=== PATIENT | female | born 1970 | race Caucasian/White ===

== ENCOUNTER 2020-02-15 22:21 | Observation (INO) | payer OTHER, SELFPAY ==
[2020-02-15 22:36] VITALS: BP 198/126; PULSE 94; RESP 16; TEMP 36.2; O2SAT 97; BMI 35.4
--- NOTE | 2020-02-15 23:53 | XR_ITS ---
WS: [id number] XR chest 1V portable [id number] REASON FOR EXAM: Chest pain FINDINGS: Portable upright AP chest shows normal appearance the heart and mediastinum. The peripheral lung show scattered granulomas but no pneumonia, pleural effusion, pulmonary edema, ar e pneumothorax. The hilum and apices normal. No osseous abnormalities. XR/XR chest 1V portable [id number] IMPRESSION: Granulomatous disease.
--- NOTE | 2020-02-15 23:54 | ECG_ITS ---
Measurements Intervals [place] Rate: 82 P: 66 MA: 138 QRS: 45 QRSD: 82 T: 43 QT: 394 QTc: 461 SINUS RHYTHM No previous ECG available for comparison Electronically Signed On 02-16-2020 11:14:07 CDT by Elvin Singletary M.D. [email or web address]
--- NOTE | 2020-02-15 23:54 | CTR_ITS ---
PROCEDURE INFORMATION: Exam: CT Cervical Spine Without Contrast Exam date and time: 02/15/2020 11:55 PM Age: 49 years old Clinical indication: Neck pain; Patient HX: CO lt shoulder pain TECHNIQUE: Imaging protocol: Computed tomography images of the cervical spine without contrast. Radiation optimization: All CT scans at this facility use at least one of these dose optimization techniques: automated exposure control; mA and/or kV adjustment per patient size (includes targeted exams where dose is matched to clinical indication); or iterative reconstruction. COMPARISON: No relevant prior studies available. RADIATION DOSE METRICS: Total DLP: 831.84 mGy-cm FINDINGS: Vertebrae: No acute fracture. Normal alignment. C2-C3: No significant disc protrusion. No severe spinal canal stenosis. No significant neural foraminal narrowing. C3-C4: No significant disc protrusion. No severe spinal canal stenosis. No significant neural foraminal narrowing. C4-C5: No significant disc protrusion. No severe spinal canal stenosis. No significant neural foraminal narrowing. C5-C6: No significant disc protrusion. No severe spinal canal stenosis. No significant neural foraminal narrowing. C6-C7: No significant disc protrusion. No severe spinal canal stenosis. No significant neural foraminal narrowing. C7-T1: No significant disc protrusion. No severe spinal canal stenosis. No significant neural foraminal narrowing. Soft tissues: Unremarkable. Lungs: Lung apices are normal. CT/CT cervical spin wo con* [id number] IMPRESSION: Negative for fracture or dislocation Radiation Dose CTDIVOL = (mGy): DLP = 831.84 (mGy-cm)
--- NOTE | 2020-02-15 23:54 | CTR_ITS ---
PROCEDURE INFORMATION: Exam: CT Head Without Contrast Exam date and time: 02/15/2020 11:55 PM Age: 49 years old Clinical indication: Pain; Headache not specified TECHNIQUE: Imaging protocol: Computed tomography of the head without contrast. Radiation optimization: All CT scans at this facility use at least one of these dose optimization techniques: automated exposure control; mA and/or kV adjustment per patient size (includes targeted exams where dose is matched to clinical indication); or iterative reconstruction. COMPARISON: No relevant prior studies available. RADIATION DOSE METRICS: Total DLP: 854.65 mGy-cm FINDINGS: Brain: Normal. No hemorrhage. Unremarkable white matter. No mass effect. Ventricles: Normal. No ventriculomegaly. Bones/joints: Unremarkable. No acute fracture. Sinuses: Visualized sinuses are unremarkable. No fluid levels. Mastoid air cells: Visualized mastoid air cells are well aerated. Soft tissues: Unremarkable. CT/CT head wo con* [id number] IMPRESSION: Negative for intracranial hemorrhage or mass effect. Radiation Dose CTDIVOL = (mGy): DLP = 854.65 (mGy-cm)
[2020-02-16] VITALS (12 sets, daily range): BP systolic 128–170; BP diastolic 77–101; PULSE 76–100; RESP 15–20; TEMP 36.6–36.8; O2SAT 94–99
--- NOTE | 2020-02-16 00:12 | ED_ITS ---
HPI - Chest Pain General: Chief Complaint: Chest Pain Stated Complaint: CP/pressure, left arm pain Time Seen by Provider: 02/15/20 22:37 Source: patient Mode of arrival: ambulatory Limitations: no limitations History of Present Illness: HPI narrative: Yue is a very nice 49-year-old female who comes in complaining of chest pressure. Today is her second episode. She describes it is up in the upper part of her chest and felt like a pressure. She did have radiation to the left arm today but not the first episode. She has shortness of breath with exertion and occasionally she will get diaphoretic. She has nausea but no vomiting. Patient does complain though that when she moves her left arm that makes the pain worse. She otherwise denies any complaints or concerns. Associated symptoms: Reports diaphoresis, dyspnea and nausea; Deny abdominal pain, fever(s), palpitations, syncope or vomiting Review of Systems Const: Reports: diaphoresis; Denies: fever(s), chills, body aches, fatigue or malaise Eyes: Denies: change in vision, blurry vision, blind spots or photophobia ENMT: Denies: throat pain, odynophagia, hoarseness, swelling of lips/tongue, ear or mastoid pain, ear discharge, change in hearing or nasal discharge Card: Reports: chest pain and dyspnea on exertion; Denies: palpitations, irregular heart rhythm, edema, lightheadedness, syncope, pre-syncope or orthopnea Resp: Reports: dyspnea; Denies: productive cough, non-productive cough, wheezing, hemoptysis or chest congestion GI: Reports: nausea; Denies: abdominal pain, vomiting, hematemesis, coffee ground emesis, heartburn, diarrhea, constipation, GI cramping, hematochezia or melena : Denies: flank pain, dysuria, urinary frequency, urinary urgency or hematuria Musc: Denies: neck pain, back pain, extremity pain, extremity swelling, joint pain, joint swelling, joint redness, joint warmth or joint stiffness Skin/Breast: Denies: rash, pruritus, erythema, skin tenderness or jaundice Neuro: Denies: headache(s), numbness in extremities, weakness in extremities, sensory changes, lack of coordination, difficulty walking, dizziness, vertigo, confusion or Slurred speech present Goyo/Lymph: Denies: easy bruising, easy bleeding, petechiae, purpura or enlarged lymph nodes All/Imm: Denies: urticaria, throat swelling, tongue swelling, facial swelling or acute wheezing PFSH ED PFSH: Medical History GERD (gastroesophageal reflux disease) Hypertension Family History Other CAD (coronary artery disease) Diabetes Hypertension Social History Smoking and tobacco status: former smoker Physical Exam Const: COMMON NORMALS: no acute distress, patient oriented x3, no limitations, healthy appearing and well nourished GENERAL APPEARANCE: cooperative, well kempt and well developed HENMT: COMMON NORMALS: normocephalic, atraumatic, hearing grossly normal bilaterally, external ears normal, EAC's normal, Normal external nose present and moist oral mucous membranes HEAD & SCALP: normocephalic and atraumatic NOSE: Normal external nose present and Normal nares present EXTERNAL EAR: Yes external ears normal EXTERNAL AUDITORY CANAL: EAC's normal MOUTH: Normal oral and palatal mucosa present, lip normal and tongue normal Eye: COMMON NORMALS: Equal, round and reactive pupils present, EOMs intact bilaterally, conjunctivae normal and no scleral icterus GENERAL EYE: appearance normal, both eyes and all related structures ALIGNMENT: Yes alignment normal PERIORBITAL: periorbital findings normal EYELID: eyelids normal CONJUNCTIVA: Yes conjunctivae normal SCLERA: sclerae normal PUPIL: Yes Equal, round and reactive pupils present Neck/C-Spine: COMMON NORMALS: full ROM, no lymphadenopathy, supple, no meningeal signs and no JVD GENERAL: Yes normal visual inspection and Yes trachea midline Chest: COMMONS NORMALS: normal inspection of the chest and normal palpation of entire chest wall Resp: COMMON NORMALS: normal respiratory effort, No retractions, No use of accessory muscles and clear to auscultation bilaterally EFFORT & INSPECTION: Yes able to speak in complete sentences and Yes symmetric chest movement AUSCULTATION: clear to auscultation bilaterally, no crackles, no rales, no rhonchi and no wheezes Cardio: COMMON NORMALS: no JVD, regular rate, regular rhythm, S1 normal heart sound present, S2 normal heart sound present, No gallops present (Cardio), No clicks present (Cardio), No murmurs present (Cardio) and No rub (Cardio) RATE: regular rate RHYTHM: regular rhythm HEART SOUNDS: S1 normal heart sound present and S2 normal heart sound present GI: COMMON NORMALS: Soft to palpation and No hepatosplenomegaly present PALPATION: Yes Soft to palpation, No Tenderness to palpation present (GI), No Guarding due to palpation present (GI), No Rigid due to palpation, Yes No hepatosplenomegaly present, No Hernia present, No Palpable mass present and No Pulsatile mass present : COMMON NORMALS: Yes no CVA tenderness BLADDER/KIDNEY EXAM: Yes no CVA tenderness EXTERNAL FEMALE EXAM: No Hernia present Back/Pelvis: COMMON NORMALS: no CVA tenderness, thoracic and lumbar spine normal to inspection, no thoracic nor lumbar tenderness and thoraco-lumbar ROM normal Extremity: COMMON NORMALS: normal to inspection, full ROM, capillary refill normal, no joint enlargement, no clubbing, cyanosis or edema and no calf tenderness Neuro: COMMON NORMALS: patient oriented x3, CN's II-XII intact bilaterally, moves all extremities, no focal motor deficits and no sensory deficits noted MENINGEAL SIGNS: Yes no meningeal signs SPEECH: speech normal Psych: COMMON NORMALS: mental status grossly normal, Normal thought process present, cooperative, normal affect, speech normal and activity/motor behavior normal APPEARANCE: Yes well kempt SPEECH: Yes normal speech THOUGHT PROCESS: Normal thought process present Skin: COMMON NORMALS: no rashes or lesions noted, turgor normal, no jaundice, no petechiae and no mottling GENERAL SKIN EXAM: no rashes or lesions noted and turgor normal Course Vital Signs: Vital signs: Vital Signs Temperature 97.1 F L 02/15/20 22:36 Pulse Rate 87 02/16/20 00:40 Respiratory Rate 16 02/16/20 00:40 Blood Pressure 128/77 02/16/20 01:33 Pulse Oximetry 97 02/16/20 01:33 MDM - Chest Pain MDM Narrative: Medical decision making narrative: The patient has a heart score of 3. I have talked to her at length about the risks and benefits of coming into the hospital but despite my long conversations with her she is adamant that she wants to come into the hospital for stress testing. Claims that she does not have access to care when she gets home as she is afraid that she will have a heart attack or some type of adverse event by not having that access to care. Her blood pressure is somewhat elevated here. I reviewed the case with Dr. Ramírez and he is agreeable to come see the patient and to determine what the best course of action is. Lab Data: Attestation: I reviewed the patient's lab results. Labs: Lab Results 02/16/20 02/16/20 02/16/20 Range/Units 00:10 00:10 00:10 WBC 6.5 (4.0-10.0) 10^3/ uL RBC 4.79 (4.1-5.3) 10^6/u L Hgb 12.2 (11.5-15.3) g/dL Hct 38.8 (37.0-47.0) % MCV 81.0 (81-99) fL MCH 25.5 L (28.0-34.0) pg MCHC 31.4 (30.0-36.0) g/dL RDW 15.0 (12.1-15.1) % Plt Count 302 (130-400) 10^3/c mm MPV 8.8 (7.4-10.4) fL Neut % (Auto) 39.3 % Lymph % (Auto) 39.9 % Boundary % (Auto) 13.5 % Eos % (Auto) 6.3 % Baso % (Auto) 0.8 % Neut # (Auto) 2.6 (1.8-7.7) 10^3/u L Lymph # (Auto) 2.6 (0.8-4.8) 10^3/u L Boundary # (Auto) 0.9 (0.2-0.9) 10^3/u L Eos # (Auto) 0.4 (0.0-0.8) 10^3/u L Baso # (Auto) 0.1 (0.0-0.1) 10^3/u L Nucleated RBC % (a uto) 0 % Nucleated RBCs # 0.0 /100WBC PT 13.30 (10.5-13.3) SECO NDS INR 0.99 (0.8-1.2) D-Dimer <= 0.27 (0-0.59) ug/mIFE U Sodium 139 (136-145) mmol/L Potassium 4.2 (3.5-5.1) mmol/L Chloride 102 (98-107) mmol/L Carbon Dioxide 26 (22-29) mmol/L Anion Gap 15.2 (5-19) BUN 14 (6-20) mg/dL Creatinine 0.8 (0.5-0.9) mg/dL GFR Calculation 75.6 L (90-130) mL/min Glucose 122 H (65-115) mg/dL Calculated Osmolal ity 286 (285-295) mOsm/k g Calcium 10.0 (8.5-10.5) mg/dL Magnesium 2.2 (1.7-2.3) mg/dL Total Bilirubin 0.3 (0.15-1.2) mg/dL AST 21 (0-32) U/L ALT 20 (0-33) U/L Alkaline Phosphata se 46 (35-105) IU/L Troponin T Baselin e (0-10) ng/mL Troponin T 120 Min [place] (0-10) ng/mL Delta Troponin T (0-10) ABS# Total Protein 7.3 (6.6-8.7) g/dL Albumin 4.2 (3.5-5.2) g/dL Globulin 3.1 (1.3-4.6) g/dL Lipase 56 (13-60) U/L Urine Color (Yellow) Urine Appearance (CLEAR) Urine pH (5-7) Ur Specific Gravit y (1.005-1.030) Urine Protein (Negative) Urine Glucose (UA) (Normal) Urine Ketones (Negative) Urine Blood (Negative) Urine Nitrate (Negative) Urine Bilirubin (NEGATIVE) Urine Urobilinogen (Negative) mg/dL Ur Leukocyte Ange ase (Negative) Urine RBC (0-2) /hpf Urine WBC (0-5) /hpf Ur Squamous Epith Cells (0-5) Urine Bacteria (NONE) 02/16/20 02/16/20 02/16/20 Range/Units 00:10 00:55 01:54 WBC (4.0-10.0) 10^3/ uL RBC (4.1-5.3) 10^6/u L Hgb (11.5-15.3) g/dL Hct (37.0-47.0) % MCV (81-99) fL MCH (28.0-34.0) pg MCHC (30.0-36.0) g/dL RDW (12.1-15.1) % Plt Count (130-400) 10^3/c mm MPV (7.4-10.4) fL Neut % (Auto) % Lymph % (Auto) % Boundary % (Auto) % Eos % (Auto) % Baso % (Auto) % Neut # (Auto) (1.8-7.7) 10^3/u L Lymph # (Auto) (0.8-4.8) 10^3/u L Boundary # (Auto) (0.2-0.9) 10^3/u L Eos # (Auto) (0.0-0.8) 10^3/u L Baso # (Auto) (0.0-0.1) 10^3/u L Nucleated RBC % (a uto) % Nucleated RBCs # /100WBC PT (10.5-13.3) SECO NDS INR (0.8-1.2) D-Dimer (0-0.59) ug/mIFE U Sodium (136-145) mmol/L Potassium (3.5-5.1) mmol/L Chloride (98-107) mmol/L Carbon Dioxide (22-29) mmol/L Anion Gap (5-19) BUN (6-20) mg/dL Creatinine (0.5-0.9) mg/dL GFR Calculation (90-130) mL/min Glucose (65-115) mg/dL Calculated Osmolal ity (285-295) mOsm/k g Calcium (8.5-10.5) mg/dL Magnesium (1.7-2.3) mg/dL Total Bilirubin (0.15-1.2) mg/dL AST (0-32) U/L ALT (0-33) U/L Alkaline Phosphata se (35-105) IU/L Troponin T Baselin e 6 (0-10) ng/mL Troponin T 120 Min [place] 6.00 (0-10) ng/mL Delta Troponin T 0 (0-10) ABS# Total Protein (6.6-8.7) g/dL Albumin (3.5-5.2) g/dL Globulin (1.3-4.6) g/dL Lipase (13-60) U/L Urine Color Yellow (Yellow) Urine Appearance Clear (CLEAR) Urine pH 6 (5-7) Ur Specific Gravit y 1.015 (1.005-1.030) Urine Protein Neg (Negative) Urine Glucose (UA) Norm (Normal) Urine Ketones Negative (Negative) Urine Blood Neg (Negative) Urine Nitrate Negative (Negative) Urine Bilirubin Neg (NEGATIVE) Urine Urobilinogen Norm (Negative) mg/dL Ur Leukocyte Ange ase Negative (Negative) Urine RBC Rare (0-2) /hpf Urine WBC Rare (0-5) /hpf Ur Squamous Epith Cells Rare (0-5) Urine Bacteria Trace (NONE) Imaging Data^: CT Head: Radiologist's impression: [place] [address] CT Scan Report Signed Patient: Marquise Blankenship Unit #: [id number] : 1970 Age/Sex: 49 / F ADM Date: 02/15/20 Loc: ER Room/Bed: Attending Dr: Ordering Provider/Ordering MD: Samara Chahal DO Date of Service: 02/15/20 Procedure(s): CT head wo con* [id number] Accession Number(s): [id number] Report Number: [id number] PROCEDURE INFORMATION: Exam: CT Head Without Contrast Exam date and time: 02/15/2020 11:55 PM Age: 49 years old Clinical indication: Pain; Headache not specified TECHNIQUE: Imaging protocol: Computed tomography of the head without contrast. Radiation optimization: All CT scans at this facility use at least one of these dose optimization techniques: automated exposure control; mA and/or kV adjustment per patient size (includes targeted exams where dose is matched to clinical indication); or iterative reconstruction. COMPARISON: No relevant prior studies available. RADIATION DOSE METRICS: Total DLP: 854.65 mGy-cm FINDINGS: Brain: Normal. No hemorrhage. Unremarkable white matter. No mass effect. Ventricles: Normal. No ventriculomegaly. Bones/joints: Unremarkable. No acute fracture. Sinuses: Visualized sinuses are unremarkable. No fluid levels. Mastoid air cells: Visualized mastoid air cells are well aerated. Soft tissues: Unremarkable. CT/CT head wo con* [id number] IMPRESSION: Negative for intracranial hemorrhage or mass effect. Radiation Dose CTDIVOL = (mGy): DLP = 854.65 (mGy-cm) Dictated By: Claus Rivera MD Signed By: Claus Rivera MD Signed Date/Time: 02/16/20123 DD/ 2 CT Cervical Spine: Radiologist's impression: [address] [place] [address] CT Scan Report Signed Patient: Marquise Blankenship Unit #: [id number] : 1970 Age/Sex: 49 / F ADM Date: 0 02/15/20 Loc: ER Room/Bed: Attending Dr: Ordering Provider/Ordering MD: Samara Chahal DO Date of Service: 02/15/20 Procedure(s): CT cervical spin wo con* [id number] Accession Number(s): [id number] Report Number: [id number] PROCEDURE INFORMATION: Exam: CT Cervical Spine Without Contrast Exam date and time: 02/15/2020 11:55 PM Age: 49 years old Clinical indication: Neck pain; Patient HX: CO lt shoulder pain TECHNIQUE: Imaging protocol: Computed tomography images of the cervical spine without contrast. Radiation optimization: All CT scans at this facility use at least one of these dose optimization techniques: automated exposure control; mA and/or kV adjustment per patient size (includes targeted exams where dose is matched to clinical indication); or iterative reconstruction. COMPARISON: No relevant prior studies available. RADIATION DOSE METRICS: Total DLP: 831.84 mGy-cm FINDINGS: Vertebrae: No acute fracture. Normal alignment. C2-C3: No significant disc protrusion. No severe spinal canal stenosis. No significant neural foraminal narrowing. C3-C4: No significant disc protrusion. No severe spinal canal stenosis. No significant neural foraminal narrowing. C4-C5: No significant disc protrusion. No severe spinal canal stenosis. No significant neural foraminal narrowing. C5-C6: No significant disc protrusion. No severe spinal canal stenosis. No significant neural foraminal narrowing. C6-C7: No significant disc protrusion. No severe spinal canal stenosis. No significant neural foraminal narrowing. C7-T1: No significant disc protrusion. No severe spinal canal stenosis. No significant neural foraminal narrowing. Soft tissues: Unremarkable. Lungs: Lung apices are normal. CT/CT cervical spin wo con* [id number] IMPRESSION: Negative for fracture or dislocation Radiation Dose CTDIVOL = (mGy): DLP = 831.84 (mGy-cm) Dictated By: Claus Rivera MD Signed By: Claus Rivera MD Signed Date/Time: 02/16/20124 DD/ 3 EKG Data^: EKG 1: Attestation: I personally reviewed and interpreted this EKG as follows: EKG interpretation date: 02/16/20 EKG interpretation time: 00:03 Interpretation: Normal sinus rhythm at 82 beats a minute, no acute ST or T wave changes. EKG 2: Attestation: I personally reviewed and interpreted this EKG as follows: EKG interpretation date: 02/16/20 EKG interpretation time: 00:22 Interpretation: Normal sinus rhythm at 77 beats a minute, no blocks, normal intervals. No acute ST or T wave changes. Discharge Plan Discharge Patient Disposition: Placed in Observation Clinical Impression: Chest pain Condition: Stable Coding Level of Care Code ED Hospital Nursing Assistant for Chg Fwd Exam Comprehensive
[2020-02-16 00:29] LABS: INR 0.99 (0.8-1.2)
[2020-02-16 00:31] LABS: D Dimer <= 0.27 ug/mIFEU (0-0.59)
[2020-02-16 00:34] LABS: Basophils # 0.1 10^3/uL (0.0-0.1); Basophils % 0.8 %; Eosinophils # 0.4 10^3/uL (0.0-0.8); Eosinophils % 6.3 %; Hematocrit 38.8 % (37.0-47.0); Hemoglobin 12.2 g/dL (11.5-15.3); Lymphocytes # 2.6 10^3/uL (0.8-4.8); Lymphocytes % 39.9 %; Mean Corpuscular HGB Conc 31.4 g/dL (30.0-36.0); Mean Corpuscular Hemoglobin 25.5 pg (28.0-34.0); Mean Platelet Volume 8.8 fL (7.4-10.4); Monocytes # 0.9 10^3/uL (0.2-0.9); Monocytes % 13.5 %; Neutrophils # 2.6 10^3/uL (1.8-7.7); Neutrophils % 39.3 %; Nucleated Red Blood Cells % 0 %; Platelet Count 302 10^3/cmm (130-400); Red Blood Count 4.79 10^6/uL (4.1-5.3); White Blood Count 6.5 10^3/uL (4.0-10.0)
[2020-02-16] MEDS: nitroglycerin 0.4 mg sublingual Tablet SUBLINGUAL (00:35)
[2020-02-16] MEDS: aspirin 325 mg Tablet PO (00:36)
[2020-02-16 00:38] LABS: Alanine Aminotransferase 20 U/L (0-33); Albumin Level 4.2 g/dL (3.5-5.2); Alkaline Phosphatase 46 IU/L (35-105); Anion Gap 15.2 (5-19); Aspartate Amino Transferase 21 U/L (0-32); Blood Urea Nitrogen 14 mg/dL (6-20); Carbon Dioxide 26 mmol/L (22-29); Chloride 102 mmol/L (98-107); Globulin 3.1 g/dL (1.3-4.6); Glomerular Filtration Rate 75.6 mL/min (90-130); Glucose 122 mg/dL (65-115); Lipase 56 U/L (13-60); Magnesium 2.2 mg/dL (1.7-2.3); Osmolality Calculated 286 mOsm/kg (285-295); Potassium 4.2 mmol/L (3.5-5.1); Sodium 139 mmol/L (136-145); Total Bilirubin 0.3 mg/dL (0.15-1.2); Total Protein 7.3 g/dL (6.6-8.7)
[2020-02-16 00:40] LABS: Troponin(5th) Baseline 6 ng/mL (0-10)
[2020-02-16 01:39] LABS: Bacteria Urine TRACE; Bilirubin Urine Neg (NEGATIVE); Blood Urine Neg (Negative); Glucose Urine UA Norm (Normal); Ketones Urine Negative (Negative); Leukocyte Esterase Urine Negative (Negative); Nitrate Urine Negative (Negative); Protein Urine Neg (Negative); RBC Urine RARE /hpf (0-2); Specific Gravity, Urine 1.015 (1.005-1.030); Squamous Epithelial Cell Urine RARE (0-5); Urine Appearance Clear (CLEAR); Urine Color Yellow (Yellow); Urobilinogen Urine Norm (Negative); WBC Urine RARE /hpf (0-5); pH Urine 6 (5-7)
[2020-02-16 02:17] LABS: Troponin 5 2HR Delta 0 ABS# (0-10)
--- NOTE | 2020-02-16 02:38 | PM.HP ---
Providers/Chief Complaint Chief Complaint: CP/pressure, left arm pain History of Present Illness Marquise Blankenship is a 49 year old female who does not have significant past medical history other than GERD and seasonal allergies came in with chief complaint of chest pain. Patient is stating that she is currently camping until 10th of this month, she was in her usual state of health until few days ago she started experiencing mild pressure-like sensation in her chest and suprasternal region, she does not carry any diagnosis of IA coronary disease, CHF, thyroid disease or hypertension. She is experiencing the sensation mostly on mild exertion, this pressure-like sensation has been radiating towards her left arm as well. She did not notice any nausea, vomiting, orthopnea, PND or severe dyspnea on exertion. She endorses history of premature coronary disease in her family, her mother had IA in her 50s and required a pacemaker as well. She has 1 sibling who is doing fine. Her chest pain started this morning when she was making breakfast, chest pain is not reproducible, she is describing a pressure-like sensation which comes and goes spontaneously, exertional activities would aggravate the sensation sometimes. Diagnosis in the ER revealed hypertension, her systolic blood pressures in the range between 1 50-1 70s, diastolic 100 mmHg EKG not significant, troponin negative x2 Patient is worried that she will not be able to follow-up with her PCP because [place] and with this pandemic her PCP is not available Review of Systems Const: Reports: body aches and fatigue; Denies: fever(s) or chills Eyes: Denies: change in vision ENMT: Denies: throat pain Card: Reports: chest pain and dyspnea on exertion; Denies: palpitations, irregular heart rhythm, swelling of feet/ankles, pre-syncope, orthopnea or leg pain with exertion Resp: Denies: dyspnea GI: Denies: abdominal pain : Denies: flank pain Musc: Denies: neck pain Skin/Breast: Denies: rash Neuro: Denies: headache(s) Psych: Denies: anxiety Endo: Denies: polyuria Goyo/Lymph: Denies: easy bruising All/Imm: Denies: urticaria Medications/Allergies Allergies Allergy/AdvReac Type Severity Reaction Status Date / Time codeine Allergy Unknown Verified 02/15/20 22:40 PFSH Acute PFSH: Medical History (Updated 02/16/20 @ 03:16 by Helene Ramírez MD) GERD (gastroesophageal reflux disease) Hypertension Seasonal allergies Surgical History (Updated 02/16/20 @ 03:12 by Helene Ramírez MD) No pertinent past surgical history Family History Other CAD (coronary artery disease) Diabetes Hypertension Social History (Updated 02/16/20 @ 03:13 by Helene Ramírez MD) Smoking and tobacco status: never smoked Alcohol intake: current Alcohol use comment: Occasional use of alcohol on holidays Substance/Drug Use: never Household members: spouse Housing: House Vitals/I&O/Wt Last Vital Signs Temp 97.1 F L 02/15/20 22:36 Pulse 87 02/16/20 00:40 Resp 16 02/16/20 00:40 BP 128/77 02/16/20 01:33 Pulse Ox 97 02/16/20 01:33 Weight last 48 hrs Weight 90.718 kg Physical Exam Narrative: EXAM NARRATIVE: Head to toe examination Patient is sitting comfortably in her bed without any active chest discomfort currently systolic blood pressure 150s S1, S2 no tachycardia or heart failure Abdomen soft nontender nondistended bowel sounds present Awake alert oriented x3 GCS 15 Abdomen soft nontender nondistended No signs of hyper or hypothyroidism No STEMI no signs of edema Neurologically nonfocal exam EOMI, PERRLA Skin does not show any sign of skin ulcer or gangrene Appropriate mood and affect Data : 02/16/20 00:10 02/16/20 00:10 A&P Assessment and plan (1) Atypical chest pain: Status: Acute (2) Hypertension: Status: Acute (3) Obesity: Status: Acute Additional A&P Information Atypical chest pain Negative EKG, negative troponins x2, chest pain-free at the moment, heart score 3 She carries family history of premature coronary disease, her mother required a pacemaker and suffered from IA in her 50s Patient is a non-smoker, nonalcoholic, We will check TSH, lipid profile Cardiac stress test in the morning Essential hypertension Counseled on reduction of BMI and benefits on her pressure Would use lisinopril 10 mg for now Full code DVT prophylaxis N.p.o. 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
--- NOTE | 2020-02-16 03:41 | NMCV_ITS ---
NM laney perf SPECT r/s* [id number] Marquise Blankenship Age: 49 Gender: F : 1970 Exam Date: 02/16/2020 07:07 Ordering Phys: Helene Ramírez MD Technologist: EVA Mckeon Exam Location: [facility] Indications: CHEST PAIN/PRESSURE, LEFT ARM PAIN STRESS TEST Please [facility] IMAGE PROTOCOL Rest/Stress 1 Lexiscan Day Radiopharmaceutical Dose (mCi) Administration Site Administered by Rest: Tc-99m 10.9 IV EVA Whitfield Sestamibi Stress:Tc-99m 32.7 IV EVA Mckeon Sestamiezekiel Rest: 16-Feb-2020 60 Discovery 630 Stress: 16-Feb-2020 30 Discovery 630 0.4mg Lexiscan. Images obtained in supine and prone position. SPECT RESULTS Technical Quality: Excellent Raw Data Analysis: Normal Image Corrections: No attenuation or motion correction applied Summed Stress Score: 3 Summed Rest Score: 3 Summed Difference Score: 1 PERFUSION FINDINGS Small area of fixed perfusion defect is noted in the apical wall of left ventricle suggestive of apical thinning artifact FUNCTIONAL RESULTS (calculated via Gated SPECT) Stress Image LV EF (%): 68 Stress EDV (mL):76 TID: 1.05 Stress ESV (mL):24 Rest Image LV EF (%): 68 FUNCTIONAL FINDINGS: There is normal left ventricular systolic function. IMPRESSIONS Small area of fixed perfusion defect noted in the apex of the left ventricle suggestive of apical thinning artifact. This study is negative for ischemia. EKG segment will be documented separately Helene Campbell MD (Electronically Signed) Final Date: 16 February 2020 14:37 S
[2020-02-16 04:11] LABS: Chol HDL Ratio 4.18 mg/dL (0.0-4.40); Cholesterol 188 mg/dL (0-200); HDL Cholesterol 45 mg/dL (60-100); LDL Cholesterol Calculated 116 mg/dL (50-129); LDL HDL Ratio 2.58 RATIO (0.00-3.22); Thyroid Stimulating Hormone 2.15 uIU/mL (0.27-4.20); Triglycerides 136 mg/dL (0-150)
--- NOTE | 2020-02-16 04:15 | PC.NURSE ---
Patient arrived from ER via wheelchair and ambulated with no assistance at 0335. Patient oriented to the room and call light within reach. Patient placed on telemetry, bed in low position, and side rails up x2. Patient AxO x3. Good historian.
[2020-02-16] MEDS: lisinopril 10 mg Tablet PO (04:22)
--- NOTE | 2020-02-16 05:54 | ECG_ITS ---
Measurements Intervals [place] Rate: 78 P: 49 VT: 144 QRS: 16 QRSD: 86 T: 28 QT: 389 QTc: 443 SINUS RHYTHM LOW QRS VOLTAGE IN PRECORDIAL LEADS [QRS DEFLECTION < 1.0 mV IN CHEST LEADS] No previous ECG available for comparison Electronically Signed On 02-16-2020 11:15:27 CDT by Elvin Singletary M.D. [email or web address]
--- NOTE | 2020-02-16 06:00 | ECG_ITS ---
NAME OF STUDY: LEXISCAN SESTAMIBI STRESS TEST INDICATION: Chest Pain PROCEDURE: At the baseline, the blood pressure was 119/79 mmHg with a heart rate of 82 bpm. The electrocardiogram showed normal sinus rhythm, normal axis with nonspecific T wave abnormality in lead III and V3. The Lexiscan was infused over a period of 20 seconds. A total of 0.4 milligrams of Lexiscan was infused. The stress phase was continued for a total of 5 minutes. Heart rate at the end of the stress phase was 100 bpm with a blood pressure 143/82 mm Hg. The EKG at the peak infusion revealed sinus rhythm with no significant ST-T wave changes. Sestamibi was injected 20 seconds after the Lexiscan infusion. Blood pressure at the end of the recovery phase was 149/83 mmHg with a heart rate of 102 beats per minute. CONCLUSION: 1. No significant EKG changes with the LexiScan infusion. 2. No LexiScan induced chest pain or cardiac arrhythmia. 3. Normal blood pressure and heart rate response. 4. Sestamibi/sestamibi perfusion scan pending; see separate report. Electronically Signed On 02-17-2020 18:18:37 CDT by Florence Redd M.D. [email or web address]
--- NOTE | 2020-02-16 06:09 | PC.NURSE ---
End of shift: Patient had a uneventful shift. Patient remains AxOx3 and is ambulatory. Patient is aware of her stress test and is NPO. Patient has been resting since she got to the floor.
[2020-02-16 06:30] LABS: Troponin 5 6HR Delta 0 ng/L (0-12)
[2020-02-16] MEDS: regadenoson 0.4 Mg/5 ml Syringe IVP (08:14)
--- NOTE | 2020-02-16 10:06 | PC.NURSE ---
Patient back from stress test. VS obtained. BP 162/101, HR 89 NSR. Patient does not take anything at home for HTN. Dr. Rossi notified. Physician to put in order for [facility].
[2020-02-16] MEDS: enoxaparin 40 mg/0.4 mL Syringe SUBCUT (10:08)
[2020-02-16] MEDS: amlodipine 5 mg Tablet PO ×2 (10:44→18:44)
--- NOTE | 2020-02-16 12:14 | PC.NURSE ---
Dr. Rossi updated on patient condition. Nurse to continue to monitor.
--- NOTE | 2020-02-16 17:23 | PM.DCS ---
Discharge Providers Date of Admission: 02/16/20 03:00 Date of Discharge: February 16, 2020 Attending Provider at Admission: Helene Ramírez MD Attending Provider at Discharge: Yamel Rossi MD Diagnoses at Discharge Discharge Diagnosis (1) Atypical chest pain: Status: Acute (2) Hypertension: Status: Acute (3) Obesity: Status: Acute Reason for Visit Reason for Visit: CP/pressure, left arm pain Hospital Course Discharge Summary: Patient is a 49 year old lady who was admitted overnight with chief complaints of atypical chest pain. She did not have any acute St-T wave changes and had negative troponins. She underwent cardiac stress test this morning which did not show any signs of ischemia. Of note, she remained hypertensive during admission, bp 160-190 bpm. She has prevsiouly been diagnosed with hypertension with SBP range 140-160 systolic. She is not on any medications for this currently as she beleived this was related to her choice of antihistamines. She has now been initiated on amlodipine 5mg with advise to maintain BP chart ove rthe next week. If BP consistently >160mg over next 2 days, she is to increase the dose to 10mg daily. She is chest pain free since this morning. No further recurrence. 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 Discharge Data Data Completed and Pending: Completed Studies During Hospitalization Category Date Time Status CT cervical spin wo con* [id number] Urge nt Cat Scan 02/15/20 23:[address] head wo con* [id number] Stat Cat Scan 02/15/20 23:54 Completed XR chest 1V fidel ble [id number] Stat Exams 02/15/20 23:53 Completed NM laney perf SPECT r/s* [id number] Routin e Nuc Med 02/16/20 03:41 Completed Pending at discharge Category Date Time Status Sestamibi Stress Test Request Routi ne Exams 02/16/20 06:00 Ordered Sestamibi Stress Test Request Routi ne Exams 02/17/20 06:00 Stop Req Labs from last 24 hours 02/16/20 02/16/20 02/16/20 05:58 01:54 01:54 WBC RBC Hgb Hct MCV MCH MCHC RDW Plt Count MPV Neut % (Auto) Lymph % (Auto) [place] % (Auto) Eos % (Auto) Baso % (Auto) Neut # (Auto) Lymph # (Auto) [place] # (Auto) Eos # (Auto) Baso # (Auto) Nucleated RBC % (a uto) Nucleated RBCs # PT INR D-Dimer Sodium Potassium Chloride Carbon Dioxide Anion Gap BUN Creatinine GFR Calculation Glucose Calculated Osmolal ity Calcium Magnesium Total Bilirubin AST ALT Alkaline Phosphata se Troponin I 6 Hour 6.00 Troponin I Hi Sens Del 0 Troponin T Baselin e Troponin T 120 Min [place] 6.00 Delta Troponin T 0 Total Protein Albumin Globulin Triglycerides 136 Cholesterol 188 LDL Cholesterol, C alc 116 HDL Cholesterol 45 L LDL/HDL Ratio 2.58 Cholesterol/HDL Ra erin 4.18 Lipase TSH 2.15 Urine Color Urine Appearance Urine pH Ur Specific Gravit y Urine Protein Urine Glucose (UA) Urine Ketones Urine Blood Urine Nitrate Urine Bilirubin Urine Urobilinogen Ur Leukocyte Ange ase Urine RBC Urine WBC Ur Squamous Epith Cells Urine Bacteria 02/16/20 02/16/20 02/16/20 00:55 00:10 00:10 WBC RBC Hgb Hct MCV MCH MCHC RDW Plt Count MPV Neut % (Auto) Lymph % (Auto) [place] % (Auto) Eos % (Auto) Baso % (Auto) Neut # (Auto) Lymph # (Auto) [place] # (Auto) Eos # (Auto) Baso # (Auto) Nucleated RBC % (a uto) Nucleated RBCs # PT INR D-Dimer Sodium 139 Potassium 4.2 Chloride 102 Carbon Dioxide 26 Anion Gap 15.2 BUN 14 Creatinine 0.8 GFR Calculation 75.6 L Glucose 122 H Calculated Osmolal ity 286 Calcium 10.0 Magnesium 2.2 Total Bilirubin 0.3 AST 21 ALT 20 Alkaline Phosphata se 46 Troponin I 6 Hour Troponin I Hi Sens Del Troponin T Baselin e 6 Troponin T 120 Min [place] Delta Troponin T Total Protein 7.3 Albumin 4.2 Globulin 3.1 Triglycerides Cholesterol LDL Cholesterol, C alc HDL Cholesterol LDL/HDL Ratio Cholesterol/HDL Ra erin Lipase 56 TSH Urine Color Yellow Urine Appearance Clear Urine pH 6 Ur Specific Gravit y 1.015 Urine Protein Neg Urine Glucose (UA) Norm Urine Ketones Negative Urine Blood Neg Urine Nitrate Negative Urine Bilirubin Neg Urine Urobilinogen Norm Ur Leukocyte Ange ase Negative Urine RBC Rare Urine WBC Rare Ur Squamous Epith Cells Rare Urine Bacteria Trace 06/04/20 06/04/20 00:10 00:10 WBC 6.5 RBC 4.79 Hgb 12.2 Hct 38.8 MCV 81.0 MCH 25.5 L MCHC 31.4 RDW 15.0 Plt Count 302 MPV 8.8 Neut % (Auto) 39.3 Lymph % (Auto) 39.9 [place] % (Auto) 13.5 Eos % (Auto) 6.3 Baso % (Auto) 0.8 Neut # (Auto) 2.6 Lymph # (Auto) 2.6 [place] # (Auto) 0.9 Eos # (Auto) 0.4 Baso # (Auto) 0.1 Nucleated RBC % (a uto) 0 Nucleated RBCs # 0.0 PT 13.30 INR 0.99 D-Dimer <= 0.27 Sodium Potassium Chloride Carbon Dioxide Anion Gap BUN Creatinine GFR Calculation Glucose Calculated Osmolal ity Calcium Magnesium Total Bilirubin AST ALT Alkaline Phosphata se Troponin I 6 Hour Troponin I Hi Sens Del Troponin T Baselin e Troponin T 120 Min [place] Troponin T Total Protein Albumin Globulin Triglycerides Cholesterol LDL Cholesterol, C alc HDL Cholesterol LDL/HDL Ratio Cholesterol/HDL Ra erin Lipase TSH Urine Color Urine Appearance Urine pH Ur Specific Gravit y Urine Protein Urine Glucose (UA) Urine Ketones Urine Blood Urine Nitrate Urine Bilirubin Urine Urobilinogen Ur Leukocyte Ange ase Urine RBC Urine WBC Ur Squamous Epith Cells Urine Bacteria Vitals: Last Vital Signs Temp 97.8 F 02/16/20 16:00 Pulse 87 02/16/20 16:00 Resp 17 02/16/20 16:00 BP 170/92 02/16/20 16:00 Pulse Ox 94 02/16/20 16:00 Discharge Plan Discharge Patient Disposition: Home, Self-Care Condition: Stable Prescriptions: New amlodipine 5 mg Tablet 5 mg PO DAILY 30 Days Qty: 30 RF: 2 Continued lansoprazole 30 mg capsule,delayed release(DR/EC) 30 mg PO BID RF: 0 amoxicillin 500 mg capsule 500 mg PO QID RF: 0 clarithromycin 500 mg tablet 500 mg PO QID RF: 0 Bonnie-D 24 Hour RF: 0 Discharge Orders: Discharge Order (Routine); Ordered 02/16/20 Ordered By: Yamel Rossi Referrals: physician,primary care [Other] - 7-10 days Discharge Diet: Low Salt Discharge Activity: Resume usual activity Activity Restrictions/Additional Instructions: start amlodipine 5mg. Measure BP and keep chart at least twice daily. If top number >160, increase amlodipine to 10mg daily. follow up with PCP in your home town in 7-10 days with BP chart Discharge Attestations Time Spent in Discharge Care*: greater than 30 min Quality Metrics Clinical Quality Measures During this hospital stay, did patient experience: None Coding Level of Care Code Acute Crabber for Chg Fwd Diagnoses Atypical chest pain R07.89 Hypertension I10 Obesity E66.9
--- NOTE | 2020-02-16 18:23 | PC.NURSE ---
discharge instructions given per the physician's orders. Patient verbalized understanding and did not have any further questions. BP 170/94. 5 mg of amlodipine to be administered before discharge.
== END 2020-02-16 18:47 | disposition home or self-care (01) ==
LOC: ER 02-16 03:00 → CSU 02-16 03:20
PROVIDERS: Emergency Medicine; Admitting Provider Internal Medicine; Visit Provider Student in an Organized Health Care Education/Training Program
DX: R07.89 Other chest pain (principal); I10 Essential (primary) hypertension; E66.9 Obesity, unspecified; Z68.35 Body mass index [BMI] 35.0-35.9, adult; Z82.49 Family history of ischemic heart disease and other diseases of the circulatory system; Z83.3 Family history of diabetes mellitus
CPT/HCPCS: 12345; 36415; 70450; 71045; 72125; 78452; 80053; 80061; 81001; 83690; 83735; 84443; 84484; 85025; 85378; 85610; 93005; 93017; 96372; 99282; 99285; A9500; G0378; J1650; J2785

== ENCOUNTER → 2021-05-31 09:48 | Outpatient (BNVA) | payer OTHER, SELFPAY | PROVIDERS: PCP Family Medicine; Visit Provider Family Medicine | DX: R60.0 Localized edema (principal); I10 Essential (primary) hypertension; E66.9 Obesity, unspecified; K21.9 Gastro-esophageal reflux disease without esophagitis; Z12.31 Encounter for screening mammogram for malignant neoplasm of breast | CPT/HCPCS: 80053; 80061; 82043; 82306; 85025 ==

== ENCOUNTER → 2021-06-04 14:15 | Outpatient (BNVA) | payer OTHER, SELFPAY | PROVIDERS: PCP Family Medicine; Visit Provider Family Medicine | DX: Z20.828 Contact with and (suspected) exposure to other viral communicable diseases (principal) | CPT/HCPCS: 87635 ==

== ENCOUNTER 2021-06-14 07:46 | Outpatient (CLI) | payer OTHER, SELFPAY ==
--- NOTE | 2021-06-14 08:00 | MM_ITS ---
WS: [id number] BILATERAL DIGITAL SCREENING MAMMOGRAPHY WITH CAD CLINICAL INFORMATION: screening mammogram HISTORY: Screening mammogram. No current complaints. COMPARISON: June 11, 2020 TECHNIQUE: Bilateral CC and MLO views. FINDINGS: Scattered fibroglandular densities bilaterally. No suspicious focal mass, asymmetry, calcifications, or architectural distortion. No evidence of malignancy. MM/[place] [id number] IMPRESSION: BI-RADS: 1-Negative FOLLOW UP: 1 Year Follow-up Recommend return to annual screening mammography.
== END 2021-06-14 07:47 | disposition home or self-care (01) ==
PROVIDERS: PCP Family Medicine; Visit Provider Family Medicine
DX: Z12.31 Encounter for screening mammogram for malignant neoplasm of breast (principal)
CPT/HCPCS: 77067

== ENCOUNTER → 2021-10-07 09:44 | Outpatient (BNVA) | payer OTHER, SELFPAY | PROVIDERS: PCP Family Medicine; Visit Provider Family Medicine | DX: Z20.828 Contact with and (suspected) exposure to other viral communicable diseases (principal) | CPT/HCPCS: 87635 ==

== ENCOUNTER → 2022-05-27 08:59 | Outpatient (BNVA) | payer BC, SELFPAY | PROVIDERS: PCP Family Medicine; Visit Provider Family Medicine | DX: I10 Essential (primary) hypertension (principal) | CPT/HCPCS: 80053; 80061; 82043; 85025 ==

== ENCOUNTER → 2023-05-26 12:14 | Outpatient (BNVA) | payer BC, SELFPAY | PROVIDERS: PCP Family Medicine; Visit Provider Family Medicine | DX: K21.9 Gastro-esophageal reflux disease without esophagitis (principal); E66.9 Obesity, unspecified; I10 Essential (primary) hypertension | CPT/HCPCS: 80053; 80061; 82043; 82728; 83550; 85025 ==

== ENCOUNTER 2023-10-08 10:22 | Outpatient (CLI) | payer BC, SELFPAY ==
--- NOTE | 2023-10-08 10:27 | XR_ITS ---
WS: [id number] XR knee LT 3V* [id number] REASON FOR EXAM: acute left knee pain FINDINGS: Transverse fracture through the inferior third of the patella with minimal displacement. Patellofemor al joint space is intact. Moderate knee joint effusion. Medial and lateral joint spaces are intact and relatively well preserved mild to moderate subchondral sclerosis in the medial knee joint compartment. IMPRESSION: Minimally displaced patellar fracture as above.
== END 2023-10-08 10:23 | disposition home or self-care (01) ==
LOC: RAD 10:24
PROVIDERS: PCP Family Medicine; Visit Provider Family Medicine
DX: S82.032A Displaced transverse fracture of left patella, initial encounter for closed fracture (principal); X58.XXXA Exposure to other specified factors, initial encounter
CPT/HCPCS: 73562

== ENCOUNTER 2023-10-09 06:00 | Outpatient (CLI) | payer BC, SELFPAY | END 2023-10-09 23:59 | disposition home or self-care (01) | LOC: SPT 10-12 07:41 | PROVIDERS: PCP Family Medicine; Visit Provider Specialist | DX: Z46.89 Encounter for fitting and adjustment of other specified devices (principal); S82.002D Unspecified fracture of left patella, subsequent encounter for closed fracture with routine healing; X58.XXXD Exposure to other specified factors, subsequent encounter | CPT/HCPCS: L1832 ==

== ENCOUNTER → 2023-10-09 10:25 | Outpatient (BNVA) | payer BC, SELFPAY | PROVIDERS: PCP Family Medicine; Referring Provider Family Medicine; Visit Provider Specialist | DX: S82.032A Displaced transverse fracture of left patella, initial encounter for closed fracture; W00.1XXA Fall from stairs and steps due to ice and snow, initial encounter | CPT/HCPCS: 73562 ==

== ENCOUNTER → 2023-10-23 10:42 | Outpatient (BNVA) | payer BC, SELFPAY | PROVIDERS: PCP Family Medicine; Visit Provider Nurse Practitioner | DX: S82.032A Displaced transverse fracture of left patella, initial encounter for closed fracture (principal); W00.1XXA Fall from stairs and steps due to ice and snow, initial encounter | CPT/HCPCS: 73562 ==

== ENCOUNTER → 2023-11-11 10:13 | Outpatient (BNVA) | payer BC, SELFPAY | PROVIDERS: PCP Family Medicine; Visit Provider Specialist | DX: S82.032D Displaced transverse fracture of left patella, subsequent encounter for closed fracture with routine healing (principal); X58.XXXD Exposure to other specified factors, subsequent encounter | CPT/HCPCS: 73562 ==

== ENCOUNTER → 2023-12-02 10:54 | Outpatient (BNVA) | payer BC, SELFPAY | PROVIDERS: PCP Family Medicine; Visit Provider Specialist | DX: S82.032D Displaced transverse fracture of left patella, subsequent encounter for closed fracture with routine healing; X58.XXXD Exposure to other specified factors, subsequent encounter | CPT/HCPCS: 73562 ==

== ENCOUNTER → 2024-01-06 10:15 | Outpatient (BNVA) | payer BC, SELFPAY | PROVIDERS: PCP Family Medicine; Visit Provider Specialist | DX: S82.032D Displaced transverse fracture of left patella, subsequent encounter for closed fracture with routine healing (principal); X58.XXXD Exposure to other specified factors, subsequent encounter | CPT/HCPCS: 73560; 73565 ==

== ENCOUNTER → 2024-07-05 15:46 | Outpatient (BNVA) | payer BC, SELFPAY | PROVIDERS: Visit Provider Nurse Practitioner | DX: I10 Essential (primary) hypertension (principal) | CPT/HCPCS: 80053; 83036; 84443; 85025 ==